=== PATIENT | male | born 1985 | race Asian ===

== ENCOUNTER 2020-08-14 03:10 | Emergency (ER) | payer SELFPAY ==
[~2020-08-14] VITALS: Ht 162.6 cm; Wt 90.7 kg
--- NOTE | 2020-08-14 03:24 | NUR ---
ED Nurse Note: [employer] at bedside.
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
--- NOTE | 2020-08-14 03:31 | NUR ---
ED Nurse Note: ERMD at bedside
[2020-08-14] MEDS ORDERED: Tetanus/Diptheria/Pertussis IM ONE (03:45)
[2020-08-14] MEDS ORDERED: Morphine Sulfate 4mg/ml Inj (IV USE ONLY) IVP ONE (03:45)
[2020-08-14] MEDS ORDERED: Ampicillin/Sulbactam Sod 3 GM in NS 110 ML IVPB ONE (03:45)
--- NOTE | 2020-08-14 03:45 | NUR ---
ED Nurse Note: Blood and rapid covid test sent
[2020-08-14 04:00] VITALS: BP 126/65
[2020-08-14 04:07] LABS: BASOPHILS % (AUTO) 1.1 % (0.0-2.0); EOSINOPHILS % (AUTO) 1.1 % (0.0-3.0); HEMATOCRIT 46.1 % (42.0-52.0); HEMOGLOBIN 15.3 G/DL (14.2-18.0); LYMPHOCYTES % (AUTO) 38.5 % (20.0-45.0); MEAN CORPUSCULAR VOLUME 90 FL (80-99); MONOCYTES % (AUTO) 7.5 % (1.0-10.0); NEUTROPHILS % (AUTO) 51.9 % (45.0-75.0); PLATELET COUNT 294 K/UL (150-450); RED BLOOD COUNT 5.14 M/UL (4.70-6.10); RED CELL DISTRIBUTION WIDTH 12.5 % (11.6-14.8); WHITE BLOOD COUNT 8.8 K/UL (4.8-10.8)
[2020-08-14 04:16] LABS: ANION GAP 14 mmol/L (5-15); BLOOD UREA NITROGEN 14 mg/dL (7-18); CARBON DIOXIDE 22 MMOL/L (21-32); CHLORIDE 104 MMOL/L (98-107); CREATININE 1.1 MG/DL (0.55-1.30); SODIUM 140 MMOL/L (136-145)
[2020-08-14 04:17] LABS: INR 0.9 (0.9-1.1)
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
[2020-08-14] MEDS ORDERED: HYDROmorphone 1mg/ml Carpuject ONE ×2 (04:34→08:58)
[2020-08-14] MEDS ORDERED: HYDROmorphone 1mg/ml Carpuject IVP ONE (04:45)
--- NOTE | 2020-08-14 05:11 | Diagnostic Imaging Report ---
EXAM: CT Head Without Intravenous Contrast CLINICAL HISTORY: PAIN TECHNIQUE: Axial computed tomography images of the head/brain without intravenous contrast. CTDI is 53.4 mGy and DLP is 1072.2 mGy-cm. One or more of the following dose reduction techniques were used: automated exposure control, adjustment of the mA and/or kV according to patient size, use of iterative reconstruction technique. COMPARISON: No relevant prior studies available. FINDINGS: Brain: No hemorrhage, extra-axial fluid collection, mass effect, or edema. Ventricles: Unremarkable. Bones/joints: Unremarkable. No fracture. Soft tissues: Unremarkable. Sinuses: Unremarkable as visualized. Mastoid air cells: Unremarkable as visualized. IMPRESSION: 1. No acute intracranial abnormality.
[2020-08-14] MEDS ORDERED: Hydromorphone 0.5mg/0.5ml inj IVP ONE ×2 (05:30→09:00)
--- NOTE | 2020-08-14 05:39 | Diagnostic Imaging Report ---
EXAM: CT Maxillofacial Without Intravenous Contrast CLINICAL HISTORY: FX TECHNIQUE: Axial computed tomography images of the face without intravenous contrast. CTDI is 15.3 mGy and DLP is 361.4 mGy-cm. One or more of the following dose reduction techniques were used: automated exposure control, adjustment of the mA and/or kV according to patient size, use of iterative reconstruction technique. COMPARISON: No relevant prior studies available. FINDINGS: Bones/joints: Symphyseal fracture of the mandible with one shaft width posterior displacement of the right fragment with respect to the left. Normal articulation at the temporomandibular joints. No other fractures. Soft tissues: Unremarkable. Orbits: Unremarkable. Sinuses: Unremarkable. IMPRESSION: Symphyseal fracture of the mandible with one shaft width posterior displacement of the right fragment with respect to the left.
--- NOTE | 2020-08-14 05:49 | NUR ---
Face sheet and report for mandibular CT faxed to [facility] [phone] after spoke with Merna at [facility].
--- NOTE | 2020-08-14 06:38 | NUR ---
ED Nurse Note: Rapid covid result faxed to LASHANDA at [facility] [phone]
--- NOTE | 2020-08-14 06:46 | Diagnostic Imaging Report ---
EXAM: CT Cervical Spine Without Intravenous Contrast CLINICAL HISTORY: PAIN TECHNIQUE: Axial computed tomography images of the cervical spine without intravenous contrast. CTDI is 20.20 mGy and DLP is 590.10 mGy-cm. One or more of the following dose reduction techniques were used: automated exposure control, adjustment of the mA and/or kV according to patient size, use of iterative reconstruction technique. COMPARISON: No relevant prior studies available. FINDINGS: Vertebrae: No fracture or malalignment. Vertebral body heights and disc spaces are preserved. No spinal canal stenosis. Soft tissues: Unremarkable. IMPRESSION: No fracture or malalignment.
--- NOTE | 2020-08-14 07:09 | NUR ---
ED Nurse Note: [facility] ETA 8am. SPoke to Gloria
--- NOTE | 2020-08-14 07:11 | NUR ---
ED Nurse Note: Report given to MAURA JOAQUIN
--- NOTE | 2020-08-14 07:16 | NUR ---
Patients has been accepted at [facility] by dr robledo . patient will be transferd to room 3015 . [facility] has been called etea 0800
--- NOTE | 2020-08-14 09:04 | NUR ---
ED Nurse Note: Report for transfer was given to JEMAL Mcdonald in [facility].
[2020-08-14 09:12] VITALS: BP 130/75
--- NOTE | 2020-08-14 09:12 | NUR ---
ED Nurse Note: Pt was transferred to [facility] transported by [facility] report was given to JEMAL Mcdonald in [facility]. 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
== END 2020-08-14 09:12 | disposition other institution (70) ==
LOC: EMR 03:40
DX: S02.66XA Fracture of symphysis of mandible, initial encounter for closed fracture (principal); S09.90XA Unspecified injury of head, initial encounter; Y04.2XXA Assault by strike against or bumped into by another person, initial encounter; Y92.9 Unspecified place or not applicable; E87.6 Hypokalemia; Z23 Encounter for immunization
CPT/HCPCS: 36415; 70450; 70486; 72125; 80048; 85025; 85610; 90471; 90715; 96365; 96375; 96376; 99285; J0295; J1170; J2270; J2405; U0002